=== PATIENT | female | born 1975 | race Two or more races ===

== ENCOUNTER 2022-07-13 07:58 | Emergency (ER) | payer BC, OTHER ==
[~2022-07-13] VITALS: Ht 170.2 cm; Wt 95.6 kg
[2022-07-13 08:11] LABS: Basophils # (auto) 0 10 ^3/uL (0-0.2); Basophils % (auto) 0.4 % (0.0-2.0); Eosinophils # (auto) 0.1 10 ^3/uL (0-0.8); Eosinophils % (auto) 1.4 % (0.0-7.0); Hematocrit 42.8 % (36.0-46.0); Hemoglobin 14.3 g/dL (12.2-16.2); Lymphocytes # (auto) 2.7 10 ^3/uL (0.4-5.4); Lymphocytes % (auto) 31.3 % (10.0-50.0); Mean Corpuscular Hemoglobin 29.3 pg (28.0-32.0); Mean Corpuscular Hgb Conc. 33.4 g/dL (32.0-36.0); Mean Corpuscular Volume 87.8 fL (80.0-100.0); Monocytes # (auto) 0.6 10 ^3/uL (0-1.3); Monocytes % (auto) 6.7 % (0.0-12.0); Neutrophils # (auto) 5.2 10 ^3/uL (1.6-8.6); Neutrophils % (auto) 60.2 % (37.0-80.0); Red Blood Cells 4.88 10^6/uL (4.0-5.20); Red Cell Distribution Width 13.2 % (11.8-14.3); White Blood Cell 8.7 10^3/uL (4.4-10.8)
[2022-07-13 08:42] LABS: Albumin 3.5 g/dL (3.4-5.0); Calcium 8.7 mg/dL (8.5-10.1); Potassium 4.2 mmol/L (3.5-5.1)
[2022-07-13 08:45] LABS: BUN/Creatinine Ratio 11.7; Bilirubin, Total 0.5 mg/dL (0.2-1.0); Total Protein 7.3 g/dL (6.4-8.2)
[2022-07-13] MEDS ORDERED: IBU600T PO (09:18)
[2022-07-13 09:34] VITALS: BP 118/79
== END 2022-07-13 09:36 | disposition home or self-care (01) ==
LOC: ER 07:58
DX: R07.89 Other chest pain (principal); R09.1 Pleurisy
CPT/HCPCS: 36415; 80053; 84484; 85025; 93005

== ENCOUNTER 2025-07-02 10:09 | Outpatient (CLI) | payer BC ==
[~2025-07-02 10:09] MED LIST: IBU600T PO
[2025-07-02 10:56] LABS: Hematocrit 43.0 % (36.0-46.0); Hemoglobin 14.5 g/dL (12.2-16.2); Mean Corpuscular Hemoglobin 29.9 pg (28.0-32.0); Mean Corpuscular Volume 88.4 fL (80.0-100.0); Nucleated Red Blood Cells % 0.0 %
[2025-07-02 11:30] LABS: Alanine Aminotransferase 34 U/L (7-40); Albumin 4.3 g/dL (3.2-4.8); Alkaline Phosphatase 108 U/L (46-116); Anion Gap 8 (5-15); BUN/Creatinine Ratio 9.8 (10.0-20.0); Calcium 9.2 mg/dL (8.7-10.4); Carbon Dioxide 26 mmol/L (20-31); Chloride 107 mmol/L (98-107); Glucose 96 mg/dL (74-106); Potassium 4.3 mmol/L (3.5-5.1); Sodium 141 mmol/L (136-145); Total Protein 7.5 g/dL (5.7-8.2)
[2025-07-02 11:31] LABS: Bilirubin, Total 0.6 mg/dL (0.2-1.0); Blood Urea Nitrogen 8 mg/dL (9-23)
[2025-07-02 11:48] LABS: Triglycerides 150 mg/dL (< 150)
[2025-07-02 11:50] LABS: Cholesterol 167 mg/dL (< 200); HDL Cholesterol 46 mg/dL (40-59)
[2025-07-02 12:20] LABS: Urine Protein, UAD TRACE (Negative)
== END 2025-07-02 17:00 | disposition home or self-care (01) ==
LOC: LAB 10:09
PROVIDERS: ATTEND Nurse Practitioner Family
DX: E78.5 Hyperlipidemia, unspecified (principal); E55.9 Vitamin D deficiency, unspecified; R73.03 Prediabetes
CPT/HCPCS: 36415; 80053; 80061; 81003; 82306; 83036; 84443; 85025

== ENCOUNTER 2025-07-31 09:02 | Day surgery (SDC) | payer BC ==
[2025-07-25 09:50] LABS: Hematocrit 44.6 % (36.0-46.0); Hemoglobin 15.0 g/dL (12.2-16.2); Mean Corpuscular Hemoglobin 29.6 pg (28.0-32.0); Mean Corpuscular Volume 88.0 fL (80.0-100.0); Nucleated Red Blood Cells % 0.0 %
[2025-07-25 10:02] LABS: INR 0.98 (0.9-1.15); Partial Thromboplastin Time 26.5 SEC (24.5-34.5); Prothrombin Time 10.4 sec (9.3-11.8)
[2025-07-25 10:12] LABS: Alanine Aminotransferase 32 U/L (7-40); Albumin 4.7 g/dL (3.2-4.8); Anion Gap 11 (5-15); BUN/Creatinine Ratio 11.9 (10.0-20.0); Blood Urea Nitrogen 10 mg/dL (9-23); Calcium 9.6 mg/dL (8.7-10.4); Carbon Dioxide 27 mmol/L (20-31); Chloride 103 mmol/L (98-107); Glucose 88 mg/dL (74-106); Potassium 4.0 mmol/L (3.5-5.1); Sodium 141 mmol/L (136-145); Total Protein 8.0 g/dL (5.7-8.2)
[2025-07-25 10:13] LABS: Bilirubin, Total 0.6 mg/dL (0.2-1.0)
[2025-07-25 10:18] LABS: Alkaline Phosphatase 117 U/L (46-116)
[2025-07-25 10:30] LABS: Urine Protein, UAD Negative (Negative)
[~2025-07-31] VITALS: Ht 170.2 cm; Wt 99.3 kg
[2025-07-31] MEDS: ceFAZolin 2 GM/D5W50ml 50 ML IV ONE (10:45)
[2025-07-31] MEDS: BUPIVACAINE HCL 50 ML ONE (11:18)
[2025-07-31 12:08] VITALS: PULSE 90; RESP 17; TEMP 97.5; O2SAT 95
[2025-07-31] MEDS ORDERED: HYDROmorphone HCL 2 MG/ML VL/or syr IV PRN (12:15)
--- NOTE | 2025-07-31 12:26 | DVHOP2 ---
Operative Report - 2 Report Details Date: 07/31/25 Preop Diagnosis: Right knee medial meniscus root tear Postop Diagnosis: Right knee medial meniscus root tear Surgeon: Alivia Burciaga MD Shanker Out: Gregoria Alicea, Physician Shanker Out Anesthesiologist: Dr. Bell Anesthesia: General Implant: Arthrex SwiveLock x1, fiber loop suture x2 Consent: The patient was informed of the risks and benefits of the procedure. These include but are not limited to complications of anesthesia, postoperative infection, incomplete relief of symptoms, recurrence of symptoms, damage to blood vessels, nerves and tendons, deep venous thrombosis, pulmonary embolism and possible need for repeat surgery in the future. Complications: None Estimated Blood Loss: Less than 5 mL Indications for Surgery: The patient is a 50-year-old female who presented to the clinic with a history of knee pain following Pilates injury. Clinical and radiological evaluation showed a medial meniscus root tear. Nonoperative and operative management options were discussed. Surgery in the form of knee arthroscopy with meniscus root repair was discussed and indicated. Benefits, risks and treatment alternatives were discussed. Specific complications of the surgery such as neur ovascular injury, infection, arthrofibrosis, loss of limb or life were discussed. The patient decided to proceed with the surgical option. Name of Procedure Performed Right knee arthroscopy with medial meniscus root repair Procedure Details Procedure Details: The patient was identified in the preoperative holding area and the surgical site was marked. The consent was verified. The patient was brought into the operating room and placed supine on the operating table. General anesthesia was administered. A tourniquet was applied over the proximal thigh. All the bony prominences were appropriately padded. The knee was positioned appropriately. The extremity was now prepped and draped in the usual sterile manner. A timeout was called out to confirm the identity of the patient, the nature of surgery, the site of surgery, the availability of implants and x-rays and allergies to medications. A standard anterolateral portal was established. A 30 degree scope was inserted. A standard anteromedial portal was established, a probe was inserted and the findings are as follows 1. Root tear medial meniscus 2. Intact ACL and PCL 3. Mild chondromalacia, grade II medial compartment cartilage, diffuse 4. Intact lateral meniscus 5. Grade 2 trochlea, normal patellofemoral joint bio kinematics She had mild chondromalacia, given the patient's relative young age and the root tear, I decided to repair the tear. For this, a looped suture was used. A suture passer and retriever was inserted along with the tape and passed around the edges of the meniscus on each side. 2 suture tapes were used. Next, a root repair guide was inserted at the footprint. Next, a guidepin was inserted from the tibial side. A small incision was made over the medial aspect of the tibia. The skin and the subcutaneous tissue were dissected. The deep fascia was incised. The guidepin was now inserted. The peripheral sleeve was inserted along with the guidepin. Next the guidepin was removed and a suture lasso was inserted through the peripheral sleeve. This was retrieved through the anteromedial portal. Both the suture tapes were now retrieved through the tunnel. Excellent tissue hold was noted. Tension was adequate. I used a SwiveLock anchor for fixation of the sutures. A reamer was inserted to drill a hole. A tap was used. All the suture tapes were now inserted for an excellent fixation of the meniscus. Irrigation was given and the skin incisions were closed with 2-0 Vicryl and 3-0 Monocryl. Sterile dressing was applied local anesthetic 0.5% Marcaine was inserted. The knee was placed in a hinged range of motion brace set at -10 to 30 degrees. Disposition: Good, the patient was extubated and taken to the recovery any complication Plan: None weightbearing allowed. Follow-up in 2 weeks Condition Good Disposition Home ALIVIA BURCIAGA MD Jul 31, 2025 12:26
[2025-07-31 12:39] VITALS: PULSE 71; RESP 12; O2SAT 96
[2025-07-31 12:56] VITALS: PULSE 64; RESP 12; O2SAT 97
[2025-07-31 13:08] VITALS: PULSE 64; RESP 12; O2SAT 96
[2025-07-31] MEDS: ONDANSETRON HCL 4 MG/2 ML VIAL IV PRN (13:36)
[2025-07-31] MEDS ORDERED: FAMOTIDINE (10MG/ML) 2ML VL IV ONE (13:50)
[2025-07-31] MEDS: FAMOTIDINE (10MG/ML) 2ML VL IV ONE (13:51)
[2025-07-31] MEDS: ACETAMINOPHEN IV 1000 MG/100ML (10MG/ML) IV ONE (13:55)
[2025-07-31 14:08] VITALS: PULSE 59; RESP 13; O2SAT 98
[2025-07-31] MEDS: PROCHLORPERAZINE EDISYLATE 5 MG/ML 2ML VIAL IV ONE (14:28)
[2025-07-31 14:53] VITALS: BP 123/57; PULSE 65; RESP 12; O2SAT 97
== END 2025-07-31 15:28 | disposition home or self-care (01) ==
LOC: SUR 09:02
PROVIDERS: ATTEND Orthopaedic Surgery Sports Medicine
DX: S83.241A Other tear of medial meniscus, current injury, right knee, initial encounter (principal); M94.261 Chondromalacia, right knee; Z79.899 Other long term (current) drug therapy; X58.XXXA Exposure to other specified factors, initial encounter; Y93.89 Activity, other specified; Y92.89 Other specified places as the place of occurrence of the external cause; Y99.8 Other external cause status
CPT/HCPCS: 29882; 36415; 80053; 81001; 81025; 85025; 85610; 85730; C1713; J0690; J0780; J2405; J3490; J7120; J0131